=== PATIENT | female | born 1970 | race Caucasian/White ===

== ENCOUNTER 2021-08-05 19:03 | Emergency (ER) | payer SELFPAY ==
[2021-08-05 19:08] VITALS: BP 136/85; PULSE 103; RESP 14; TEMP 36.3; O2SAT 97
--- NOTE | 2021-08-05 19:45 | DI.RAD_ITS ---
Exam(s) XR KNEE RT 3V AP,LAT,FAWN EXAM: XR KNEE RT 3V AP,LAT,FAWN CLINICAL HISTORY: right knee pain. TECHNIQUE: 2D digital imaging was performed. COMPARISON: No exams were available for comparison FINDINGS: 3 views There is no evidence of fracture. There appears to be a small amount of increased joint fluid. No l arge joint effusion no joint space narrowing. No osteophytes. No osseous lesions. Bone density marques ears normal. IMPRESSION: No significant osseous findings. Small amount of increased joint fluid noted DATA REPOSITORY: RADIATION DOSE DELIVERED:
--- NOTE | 2021-08-05 20:41 | ED.GENADUL_ITS ---
Discharge Plan Disposition Patient Disposition: HOME Condition: Stable Discharge Details Clinical Impression: Contusion of knee Primary Care Provider: Unknown,Unknown ED Provider: April Weldon Home Meds and New Rx's Prescriptions: No Action No Known Home Meds 0RF Discharge Instructions Instructions: Contusion in Adults (ED) Additional Instructions: Ibuprofen and Tylenol as needed for pain Follow-up for repeat x-ray in 1 week with persistent discomfort Return earlier should you have new or worsening complaints Discharge Data Discharge Date/Time-TO BE ENTERED AT DEPARTURE: 08/05/21 21:17 Medical Decision Making X-ray does not show evidence of acute abnormality Patient is ambulatory with steady slightly antalgic gait Dictating my care ibuprofen and Tylenol as needed for pain Medical Records Medical records reviewed: Yes I reviewed the patient's medical records. Lab Data Lab results reviewed: Yes I reviewed the patient's lab results. HPI General Date/Time Provider Initiated Documentation: 08/05/21 19:42 . HPI Narrative: This 50-year-old female presents with report of falling on Saturday at work accidentally and hurting her left knee. She states that she is unable to walk since that time but that pain has been persistent which is why she presents. She denies any chance of . She denies any additional injuries. Related Data Home Medications Medication Instructions Recorded Confirmed Unknown [No Known Home Meds] 08/05/21 08/05/21 Allergies Allergy/AdvReac Type Severity Reaction Status Date / Time amoxicillin Allergy Severe Other (See Unverified 08/05/21 19:17 Comment) azithromycin Allergy Severe Other (See Unverified 08/05/21 19:17 Comment) Penicillins Allergy Severe Other (See Unverified 08/05/21 19:17 Comment) Sulfa (Sulfonamide Allergy Severe Other (See Unverified 08/05/21 19:17 Antibiotics) Comment) sulfamethoxazole Allergy Severe Other (See Unverified 08/05/21 19:17 [From Bactrim] Comment) trimethoprim [From Bactrim] Allergy Severe Other (See Unverified 08/05/21 19:17 Comment) General Stated Complaint: Orthopedic ARMANDO: 4 Review of Systems All systems reviewed & are unremarkable except as noted in HPI and below PFSH All Active Problems (Updated 08/05/21 @ 20:41 by SUGAR Palmer) Contusion of knee (Acute) Social History Smoking/Tobacco Use Status: Current every day Tobacco Type: cigarettes Smoking risk assessment performed?: Yes Alcohol Intake: current Alcohol Intake frequency: a few times a week Alcohol type: wine Drug use: Never Substance use type: does not use Do you feel safe at home: Yes Do you feel safe in your relationship?: Yes Exam Const General: cooperative, comfortable and no acute distress Extrem Other: Left knee with tenderness, no visible evidence of trauma, no joint laxity No tenderness to left hip or left ankle No tenderness with palpation to right knee Neurovascularly intact Course Vital Signs Vital signs: Vital Signs Temperature 36.3 C L 08/05/21 19:08 Pulse 103 H 08/05/21 19:08 Respiratory Rate 14 08/05/21 19:08 Blood Pressure 136/85 08/05/21 19:08 Pulse Oximetry 97 08/05/21 19:08 Temperature 36.3 C L 08/05/21 19:08 Temperature Source Oral 08/05/21 19:08 Pulse 103 H 08/05/21 19:08 Respiratory Rate 14 08/05/21 19:08 Respiratory Effort Non-Labored 08/05/21 19:11 Blood Pressure 136/85 08/05/21 19:08 Blood Pressure Position Sitting 08/05/21 19:08 Pulse Oximetry 97 08/05/21 19:08 Oxygen Delivery Method Room Air 08/05/21 19:08 Oxygen Flow Rate 0 08/05/21 19:08 Pain Level 8 08/05/21 19:11 PAWSS Have you Been Recently Intoxicated or Drunk Within the Last 30 days?: No Have you Ever Experienced Previous Episodes of Alcohol Withdrawal?: No Have you ever Experienced Withdrawal Seizures?: No Have you ever Experienced Delirium Tremens(DT)s?: No Have you ever undergone Alcohol Rehabilitation Treatment (i.e, inpt ot outpatient treatment programs)?: No Have you ever Experienced Blackouts?: No Have you ever Combined Alcohol with other Downers within the last 90 days?: No Have you ever Combined Alcohol with any other Substance of Abuse during the last 90 days?: No Positive Blood Alcohol level on Presentation? [PCS.BAL]: No Evidence of Increased Autonomic Activity (i.e. HR>120, tremor, sweating, agitation, nausea)?: No Result: 0
--- NOTE | 2021-08-05 20:54 | DI.VRAD_ITS ---
PROCEDURE INFORMATION: Exam: XR Right Knee Exam date and time: 08/05/2021 8:27 PM Age: 50 years old Clinical indication: Injury or trauma; Other: Unknown; Blunt trauma; Knee; Right TECHNIQUE: Imaging protocol: XR Right knee. Views: 3 views. COMPARISON: No relevant prior studies available. FINDINGS: Bones/joints: No evidence of fracture. Negative for dislocation. Negative for bony erosion or destructive change. No joint effusion. Soft tissues: Negative for soft tissue air. No foreign bodies observed. IMPRESSION: No acute osseous abnormality. If symptoms persist, follow-up imaging is advised. Dictated and Authenticated by: Aramis Garcia MD. Ordering:ZAKIYA Chen MD
== END 2021-08-05 21:17 | disposition home or self-care (01) ==
PROVIDERS: Emergency Provider Physician Assistant
DX: S80.01XA Contusion of right knee, initial encounter (principal); W18.39XA Other fall on same level, initial encounter; Y99.0 Civilian activity done for income or pay
CPT/HCPCS: 73562; 99283